=== PATIENT | male | born 1975 | race Caucasian/White ===

== ENCOUNTER 2016-03-26 08:28 | Emergency (ER) | payer BC, OTHER ==
[~2016-03-26] VITALS: Ht 180.3 cm; Wt 106.0 kg
[~2016-03-26 08:28] MED LIST: CYCL-36 PO; PRED20 PO; pain med
[2016-03-26 08:35] VITALS: BP 133/82; PULSE 85; RESP 18; TEMP 98.3; O2SAT 97
[2016-03-26] MEDS ORDERED: predniSONE 20 MG TAB PO ONE (08:45)
[2016-03-26] MEDS ORDERED: RESP: ALBUTEROL 2.5 MG/IPRATROPIUM 0.5 MG NEB (SCH) NEB ONE (08:45)
[2016-03-26] MEDS ORDERED: PRED20 PO (08:54)
[2016-03-26] MEDS ORDERED: PROM6.256 PO (08:55)
[2016-03-26] MEDS ORDERED: AZIT500T2 PO (08:55)
[2016-03-26] MEDS ORDERED: ALBUAER3 INH (08:55)
[2016-03-26] MEDS ORDERED: BENZ100 PO (08:55)
--- NOTE | 2016-03-26 08:55 | PD ---
HPI Chief Complaint: Cold / Flu Symptoms Time Seen by Provider: 08:40 Travel History International Travel<30 days: No Contact w/Intl Traveler<30days: No Traveled to known affect area: No History of Present Illness HPI Patient is a 41-year-old male with history of smoking, presents to emergency room with complaints of cough. Patient reports that he has had a nonproductive cough for the past 3 days. Denies myalgias that he reports that his whole body hurts when he has his coughing attacks. Denies fevers or chills, denies any recent travels or chest. Patient denies any sick contacts. Reports that he is a smoker, he did quit smoking 4 days ago. Reports that he did not receive the flu vaccine this year. Denies chest pain or shortness of breath. Denies abdominal pain. Patient with no other complaints at this time. PFSH Past Medical History Medical History: Denies Significant Hx Diminished Hearing: No Tetanus Vaccination: Unknown Influenza Vaccination: No Past Surgical History Surgical History: No Previous Surgery Family History Family History: Negative Social History Alcohol Use: Yes Tobacco Use: Yes Substance Use: No Allergies-Medications (Allergen,Severity, Reaction): Coded Allergies: No Known Allergies (Unverified , 03/26/16) Reported Meds & Prescriptions Reported Meds & Active Scripts Active Promethazine-Codeine Liq 6.25-10 Mg/5 Ml Syrp 10 Ml PO Q6H PRN 7 Days Tessalon Perles (Benzonatate) 100 Mg Cap 100 Mg PO TID PRN 3 Days Azithromycin 500 Mg Tab 500 Mg PO DAILY Proair Hfa 8.5 GM Inh (Albuterol Sulfate) 90 Mcg/Act Aer 2 Puff INH Q4-6H PRN 108 mcg/actuation Prednisone 20 Mg Tab 20 Mg PO BID 5 Days Review of Systems General / Constitutional: No: Fever, Chills Eyes: No: Visual changes HENT: No: Headaches Cardiovascular: No: Chest Pain or Discomfort Respiratory: Positive: Cough, No: Shortness of Breath, Wheezing, Sneezing Gastrointestinal: No: Abdominal Pain Genitourinary: No: Dysuria Musculoskeletal: No: Pain Skin: No Rash Neurologic: No: Weakness Psychiatric: No: Depression Endocrine: No: Polydipsia Hematologic/Lymphatic: No: Easy Bruising Physical Exam Narrative GENERAL: NAD, Nontoxic SKIN: Warm and dry. HEAD: Atraumatic. Normocephalic. ENT: No nasal bleeding or discharge. Mucous membranes pink and moist. NECK: Trachea midline. No JVD. CARDIOVASCULAR: Regular rate and rhythm. No murmur appreciated. RESPIRATORY: No accessory muscle use. Clear to auscultation. Breath sounds equal bilaterally. GASTROINTESTINAL: Abdomen soft, non-tender, nondistended. Hepatic and splenic margins not palpable. MUSCULOSKELETAL: No obvious deformities. No clubbing. No cyanosis. No edema. NEUROLOGICAL: Awake and alert. No obvious cranial nerve deficits. Motor grossly within normal limits. Normal speech. Data Data Last Documented VS Vital Signs Date Time Temp Pulse Resp B/P Pulse Ox O2 Delivery O2 Flow Rate FiO2 03/26/16 08:35 98.3 85 18 133/82 97 Orders Influenzae A/B Antigen (03/26/16 08:44) Chest, Pa & Lat (03/26/16 08:44) Albuterol-Ipratropium Neb (Duoneb Neb) (03/26/16 08:45) Prednisone (Deltasone) (03/26/16 08:45) Azithromycin (Zithromax) (03/26/16 09:45) MDM Medical Decision Making Medical Screen Exam Complete: Yes Emergency Medical Condition: Yes Interpretation(s) Vital Signs Date Time Temp Pulse Resp B/P Pulse Ox O2 Delivery O2 Flow Rate FiO2 03/26/16 08:35 98.3 85 18 133/82 97 Differential Diagnosis Pneumonia, influenza, bronchitis,pneumothorax Narrative Course Patient is a 41-year-old male who presents to the emergency room with complaints of non-productive cough for the past 3 days. Patient with no fevers chills, no myalgias. Patient reports that he has been unable to sleep as he has been having increased coughing fits. Vital Signs Date Time Temp Pulse Resp B/P Pulse Ox O2 Delivery O2 Flow Rate FiO2 03/26/16 08:35 98.3 85 18 133/82 97 Vital signs stable at this time. Patient nontoxic on evaluation. X-ray chest ordered as well as influenza swab. Patient with most likely acute bronchitis. Will treat with steroids and neb treatment. X-ray of the chest with no evidence of pneumonia. Influenza swab negative. Patient will follow-up with primary care doctor and return to ER as needed. Diagnosis Primary Impression: Acute bronchitis Qualified Code: J20.9 - Acute bronchitis, unspecified organism Patient Instructions: General Instructions Departure Forms: Tests/Procedures, Work Release Enter return to work date: Mar 30, 2016 Additional Instructions: Please return to emergency room as needed Please take all medications as prescribed Do not drive or operate heavy machinery while taking coughing medication with codeine as codeine is sedating medication Return to emergency room if symptoms progress or worsen Please stop smoking cigarettes Med/Other Pt SpecificInfo: Prescription(s) given Scripts Promethazine-Codeine Liq 6.25-10 Mg/5 Ml Syrp10 Ml PO Q6H PRN (COUGH AND/OR COLD SYMPTOMS) 7 Days Ref 0 Prov:Terri Lemus DO 03/26/16 Benzonatate (Tessalon Perles)100 Mg [id number] Mg PO TID PRN (COUGH) 3 Days Ref 0 Prov:Terri Lemus DO 03/26/16 Azithromycin 500 Mg [id number] Mg PO DAILY #5 TAB Ref 0 Prov:Terri Lemus DO 03/26/16 Albuterol 8.5 GM Inh (Proair Hfa 8.5 GM Inh)90 Mcg/Act Aer2 Puff INH Q4-6H PRN ( SHORTNESS OF BREATH) #1 INHALER Ref 0 108 mcg/actuation Prov:Terri Lemus DO 03/26/16 Prednisone 20 Mg Tab20 Mg PO BID 5 Days Ref 0 Prov:Terri Lemus DO 03/26/16 Disposition: 01 DISCHARGE HOME Condition: Stable Terri Lemus DO Mar 26, 2016 08:55
--- NOTE | 2016-03-26 09:44 | RADHPO ---
EXAM DATE/TIME: 03/26/2016 09:17 [facility] COMPARISON: No previous studies available for comparison. INDICATIONS : Cough, congestion x 3 days. MEDICAL HISTORY : None. SURGICAL HISTORY : None. ENCOUNTER: Initial ACUITY: 3 days PAIN SCORE: 0/10 LOCATION: chest FINDINGS: PA and lateral views of the chest demonstrate the lungs to be symmetrically aerated without evidence of mass, infiltrate or effusion. The cardiomediastinal contours are unremarkable. Osseous structure s are intact. CONCLUSION: No acute disease. There is no evidence of pneumonia. Marcio Doty MD on March 26, 2016 at 9:39 Board Certified Radiologist. This report was verified electronically.
[2016-03-26] MEDS ORDERED: AZITHROMYCIN 250 MG TAB PO ONE (09:45)
[2016-03-26 09:59] VITALS: BP 129/80
== END 2016-03-26 10:06 | disposition home or self-care (01) ==
LOC: PHED 08:28
DX: J20.9 Acute bronchitis, unspecified (principal); Z72.0 Tobacco use; F10.10 Alcohol abuse, uncomplicated
CPT/HCPCS: 71020; 87804; 94664; 99283; J7512

== ENCOUNTER 2016-12-20 07:13 | Emergency (ER) | payer SELFPAY ==
[~2016-12-20] VITALS: Ht 179.1 cm; Wt 109.0 kg
[~2016-12-20 07:13] MED LIST changes: +ALBUAER3 INH; +AZIT500T2 PO; +BENZ100 PO; -CYCL-36 PO; +PROM6.256 PO; -pain med
[2016-12-20 07:15] VITALS: BP 141/91; PULSE 94; RESP 16; TEMP 98.5; O2SAT 98
--- NOTE | 2016-12-20 07:26 | PD ---
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 States he does have a history of low back pain but does not take medications chronically. States his pain is moderate, aching , worse with movement decreases with rest, located in the lower lumbar region. Denies radiation of pain, he has not taken anything for this condition yet today. He denies fever, trauma, chills, loss of bowel or bladder function, IV drug use, personal history of cancer, weakness. Denies any chronic medication use or medical history. PFSH Past Medical History Diminished Hearing: No Social History Alcohol Use: Yes Tobacco Use: Yes Substance Use: No Allergies-Medications (Allergen,Severity, Reaction): Coded Allergies: No Known Allergies (Unverified Adverse Reaction, Unknown, 12/20/16) Reported Meds & Prescriptions Reported Meds & Active Scripts Active Ibuprofen 800 Mg Tab 800 Mg PO TID 5 Days Medrol Dosepak (Methylprednisolone) 4 Mg Dspk 4 Mg PO DIRECTED Per Pharmacist direction Review of Systems Except as stated in HPI: all other systems reviewed are Neg Physical Exam Narrative GENERAL: Well-developed well-nourished SKIN: Focused skin assessment warm/dry. No rash. HEAD: Atraumatic. Normocephalic. EYES: Pupils equal and round. No scleral icterus. No injection or drainage. ENT: No nasal bleeding or discharge. Mucous membranes pink and moist. NECK: Trachea midline. No JVD. CARDIOVASCULAR: Regular rate and rhythm. No murmur appreciated. RESPIRATORY: No accessory muscle use. Clear to auscultation. Breath sounds equal bilaterally. MUSCULOSKELETAL: No obvious deformities. No clubbing. No cyanosis. No edema. BACK: No CVA tenderness. No rash. No point tenderness on palpation of the spine. Mild TTP to lumbar paraspinous region. NEUROLOGICAL: Awake and alert. No obvious cranial nerve deficits. Motor grossly within normal limits. Normal speech. PSYCHIATRIC: Appropriate mood and affect; insight and judgment normal. 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 States he does have a history of low back pain but does not take medications chronically. States his pain is moderate, aching , worse with movement decreases with rest, located in the lower lumbar region. Denies radiation of pain, he has not taken anything for this condition yet today. He denies fever, trauma, chills, loss of bowel or bladder function, IV drug use, personal history of cancer, weakness. Denies any chronic medication use or medical history. No red flag symptoms. Physical exam demonstrates increased discomfort with movement, neuro vascularly intact. Mild tenderness to palpation bilateral lumbar paraspinous muscles. Otherwise normal exam. Imaging studies are not indicated at this point. H&P consistent with acute lumbago. Prednisone, Norflex, and Toradol in ED for relief. Medrol Dosepak and ibuprofen symptom relief. Patient advised to return for worsening or persistent symptoms Diagnosis Primary Impression: Lumbago Qualified Codes: M54.5 - Low back pain Referrals: Primary Care Physician Patient Instructions: Acute Low Back Pain (ED), General Instructions, Safe Use of NSAIDs (DC) Additional Instructions: Perform light stretches of the lower back and legs, and alternate heat and ice packs. If you develop increased pain, weakness, fever, chills, or bowel or bladder issues, return to the ED for further treatment and evaluation. Follow up with your primary care physician in 2-3 days. Use medications as prescribed. Scripts Ibuprofen (Ibuprofen) 800 Mg Tab 800 MG PO TID for Arthritis Pain for 5 Days, TAB 0 Refills Prov: Sarmad Reese MD 12/20/16 Methylprednisolone Dosepak (Medrol Dosepak) 4 Mg Dspk 4 MG PO DIRECTED, #1 DSPK 0 Refills Per Pharmacist direction Prov: Sarmad Reese MD 12/20/16 Disposition: 01 DISCHARGE HOME Condition: Stable [place] Dec 20, 2016 07:26
[2016-12-20] MEDS ORDERED: MEDR4PAK PO (07:40)
[2016-12-20] MEDS ORDERED: IBUP1TAB7 PO (07:40)
[2016-12-20] MEDS ORDERED: predniSONE 50 MG TAB PO ONE (07:45)
[2016-12-20] MEDS ORDERED: KETOROLAC TROMETHAMINE 60 MG/2 ML (IM) VIAL IM ONE (07:45)
[2016-12-20] MEDS ORDERED: ORPHENADRINE INJ 60 MG/2 ML AMP IM ONE (07:45)
[2016-12-21] MEDS ORDERED: CYCL10TA PO (09:47)
== END 2016-12-20 08:18 | disposition home or self-care (01) ==
LOC: NEPD 07:13
DX: M54.5 Low back pain (principal); Z72.0 Tobacco use
CPT/HCPCS: 96372; 99284; J1885; J2360; J7512

== ENCOUNTER 2016-12-21 08:34 | Emergency (ER) | payer SELFPAY ==
[~2016-12-21] VITALS: Ht 177.8 cm; Wt 120.0 kg
[~2016-12-21 08:34] MED LIST changes: -ALBUAER3 INH; -AZIT500T2 PO; -BENZ100 PO; +IBUP1TAB7 PO; +MEDR4PAK PO; -PRED20 PO; -PROM6.256 PO
[2016-12-21 08:35] VITALS: BP 135/79; PULSE 101; RESP 14; TEMP 98.4; O2SAT 97
[2016-12-21] MEDS ORDERED: CYCL10TA PO (09:47)
--- NOTE | 2016-12-21 09:48 | PD ---
HPI . Low back pain Chief Complaint: Back/ Neck Pain or Injury Time Seen by Provider: 09:18 Travel History International Travel<30 days: No Contact w/Intl Traveler<30days: No Traveled to known affect area: No History of Present Illness HPI This patient presents with chief complaint of low back pain. Onset was yesterday. 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 He describes a constant, achy pain which she rates 5/ 10. Pain is exacerbated by standing up and bending over. Patient reports that he does a lot of heavy lifting at work. He gives a history of previous back problems. His main concern is that he was seen here yesterday and was not given a work excuse. He was given prescriptions for Motrin and Medrol. He states that the symptoms are improved but are not improved well enough to go to work. He is here today requesting a work excuse. He denies any bowel or bladder dysfunction. He denies any perineal anesthesia. He denies any fevers. He denies any history of IV drug abuse. [facility] Past Medical History Medical History: Denies Significant Hx Diminished Hearing: No Influenza Vaccination: No Past Surgical History Other Surgery: Yes (FLUID DRAINED FROM TESTICULAR AREA) Social History Alcohol Use: Yes (OCCASIONALLY) Tobacco Use: Yes (1/2 PPD) Substance Use: No Allergies-Medications (Allergen,Severity, Reaction): Coded Allergies: No Known Allergies (Unverified Adverse Reaction, Unknown, 12/21/16) Reported Meds & Prescriptions Reported Meds & Active Scripts Active Ibuprofen 800 Mg Tab 800 Mg PO TID 5 Days Medrol Dosepak (Methylprednisolone) 4 Mg Dspk 4 Mg PO DIRECTED Per Pharmacist direction Review of Systems Except as stated in HPI: all other systems reviewed are Neg General / Constitutional: No: Fever, Chills Genitourinary: No: Urgency, Frequency, Dysuria, Incontinence Musculoskeletal: Positive: Pain (low back pain) Neurologic: No: Weakness, Focal Abnormalities, Paresthesia, Incontinence Physical Exam Narrative GENERAL: This patient is awake and alert and in no acute distress. SKIN: Warm and dry with no rash or lesions. HEAD: Normocephalic/atraumatic. EYES: Pupils are equal. Extraocular movements are intact. NECK: Full range of motion with no apparent pain. RESPIRATORY: Nonlabored respirations. MUSCULOSKELETAL: Diffuse tenderness in the lower part back bilaterally. No tenderness to percussion of the spine. Obvious pain on movement. NEUROLOGICAL: Nonfocal. PSYCHIATRIC: Appropriate mood and affect. Data Data Last Documented VS Vital Signs Date Time Temp Pulse Resp B/P (MAP) Pulse Ox O2 Delivery O2 Flow Rate FiO2 12/21/16 08:35 98.4 101 14 135/79 (97) 97 MDM Medical Decision Making Medical Screen Exam Complete: Yes Emergency Medical Condition: Yes Differential Diagnosis Differential diagnosis includes but is not limited to muscular low back pain, DDD, spinal stenosis, epidural abscess, sciatica, kidney infection or stone. Narrative Course This patient presents with mechanical low back pain. It is bilateral. He has no associated neurological signs or symptoms. He has had no fever. His pain is actually improved following initiation of Motrin and steroids yesterday. I will add a muscle relaxant. Diagnosis Primary Impression: Low back pain Qualified Codes: M54.5 - Low back pain Patient Instructions: Acute Low Back Pain (DC), General Instructions Med/Other Pt SpecificInfo: Prescription(s) given Scripts Cyclobenzaprine (Flexeril) 10 Mg Tab 10 MG PO TID for Muscle Spasm, #30 TAB 0 Refills Prov: Zuleyma Flores MD 12/21/16 Disposition: 01 DISCHARGE HOME Condition: Stable Zuleyma Flores MD Dec 21, 2016 09:48
== END 2016-12-21 10:06 | disposition home or self-care (01) ==
LOC: NEPD 08:34
DX: M54.5 Low back pain (principal); F17.200 Nicotine dependence, unspecified, uncomplicated
CPT/HCPCS: 99283